=== PATIENT | female | born 1955 | race American Indian/Alaskan Native ===

== ENCOUNTER 2016-09-05 11:33 | Outpatient (CLI) | payer MEDICARE ==
[2016-09-05 12:31] LABS: Blood Urea Nitrogen 18 mg/dL (7-17)
[2016-09-05] MEDS ORDERED: NACL ONE (12:38)
== END 2016-09-05 11:34 | disposition home or self-care (01) ==
LOC: CT 11:33
PROVIDERS: ATTEND Radiology Vascular & Interventional Radiology
DX: I70.223 Atherosclerosis of native arteries of extremities with rest pain, bilateral legs (principal)
CPT/HCPCS: 36415; 75635; 82565; 84520; Q9967

== ENCOUNTER 2017-02-02 13:22 | Emergency (ER) | payer MEDICARE ==
[2017-02-02 14:16] VITALS: BP 177/84
--- NOTE | 2017-02-02 14:33 | Emergency Department Report ---
Entered by SARA GARNETT, acting as scribe for DRU JENSEN NP. Chief Complaint: High BP Stated Complaint: BP HIGH/DIABETIC Time Seen by Provider: 02/02/17 14:20 - HPI History of Present Illness: Pt is non-toxic, non ill appearing, in no acute distress with c/o needing a PCP and a medication refill. PMHx of HTN and notes compliancy to medication until she ran out. Reports left foot pain. Denies injury/trauma to left foot. Patient states she had surgery on her left foot recently and notes an "ulcer" formation that is gradually getting better. Denies vision changes, headache, chest pain, SOB, abdominal pain, nausea, and vomiting. Also reports PMHx of IDDM and CVA. - ROS Review of Systems: Reports left foot pain. Denies vision changes, headache, chest pain, SOB, abdominal pain, nausea, and vomiting. - Exam Vital Signs: Vital Signs 02/02/17 14:13 Temperature 99.3 F Pulse Rate 87 Respiratory 17 Rate Blood Pressure 177/84 O2 Sat by Pulse 100 Oximetry Physical Exam: Constitutional: Non toxic appearing, NAD. Cardiovascular: Normal rate and rhythm with normal S1/S2 sounds. Respiratory: No respiratory distress. Lung sounds clear to auscultation bilaterally. Abdomen: Abdomen is non-distended, soft with no tenderness to palpation in all quadrants. Extremities: Left foot has an jose a wrap placed MSE screening note: Focused history and physical exam performed. Due to findings the following was ordered: CBC, BMP, blood glucose point of care, and UA will be ordered on patient ED Disposition for MSE Condition: Stable This documentation as recorded by the scribe,SARA GARNETT,accurately reflects the service I personally performed and the decisions made by ,DRU JENSEN, SEAN.
[2017-02-02 14:46] LABS: Basophils % (Auto) 0.9 % (0.0-1.8); Eosinophils % (Auto) 1.8 % (0.0-4.3); Hematocrit 35.8 % (30.3-42.9); Hemoglobin 11.6 gm/dl (10.1-14.3); Mean Corpuscular HGB Conc 32 % (30-34); Mean Corpuscular Hemoglobin 28 pg (28-32); Mean Corpuscular Volume 87 fl (79-97); Red Blood Count 4.13 M/mm3 (3.65-5.03); Red Cell Distribution Width 12.8 % (13.2-15.2); White Blood Count 6.5 K/mm3 (4.5-11.0)
[2017-02-02 14:57] LABS: Platelet Count 218 K/mm3 (140-440)
[2017-02-02 15:04] LABS: Anion Gap 16 mmol/L; Blood Urea Nitrogen 11 mg/dL (7-17); Calcium 9.4 mg/dL (8.4-10.2); Carbon Dioxide 26 mmol/L (22-30); Chloride 101.7 mmol/L (98-107); Glucose 179 mg/dL (65-100); Potassium 3.8 mmol/L (3.6-5.0); Sodium 140 mmol/L (137-145)
[2017-02-02 17:34] LABS: Bilirubin,Urine NEG (Negative); Blood,Urine SM (Negative); Ketones,Urine NEG (Negative); Leukocyte Esterase,Urine NEG (Negative); Mucus,Urine FEW /HPF; Nitrite,Urine NEG (Negative); Protein,Urine <15 mg/dL mg/dL (Negative); Urobilinogen,Urine < 2.0 mg/dL (<2.0)
[2017-02-02 17:56] LABS: Diff Status Complete
== END 2017-02-02 23:41 | disposition left against medical advice (07) ==
LOC: ED 13:22
DX: M79.672 Pain in left foot (principal); Z53.21 Procedure and treatment not carried out due to patient leaving prior to being seen by health care provider
CPT/HCPCS: 36415; 80048; 81001; 85025